=== PATIENT | male | born 1985 | race Caucasian/White ===

== ENCOUNTER 2019-07-23 14:17 | Outpatient (CLI) | payer OTHER, SELFPAY ==
--- NOTE | ~2019-07-23 | MR_ITS ---
EXAMINATION: MR lumbar spine wo con DATE: 07/23/2019 15:24 INDICATION: Low back pain. TECHNIQUE: Magnetic resonance imaging (MRI) of the lumbar spine was performed without intravenous con trast. Sequences included sagittal T2-weighted FSE, sagittal T2-weighted FS FSE, sagittal T1-weighted FSE, and axial T2-weighted FSE. COMPARISON: Lumbar spine radiographs 07/09/2019 FINDINGS: Bone alignment is normal. There are Schmorl's nodes at most levels. There is mild chronic a nterior wedging of T12 and L2 vertebral bodies. L4 is a limbus vertebral body. Intervertebral disc he ights are normal. The distal spinal cord signal intensity is normal. The conus medullaris is at L1-L2 . Epidural lipomatosis is noted. The following disc levels are specifically discussed: L1-L2: The disc is bulging. There is mild bilateral facet joint osteoarthritis. There is mild right n eural foraminal stenosis. There is mild central canal stenosis. L2-L3: The disc is bulging. There is mild right facet joint osteoarthritis. There is mild bilateral n eural foraminal stenosis. There is mild central canal stenosis. L3-L4: The disc does not extend beyond the endplate margin. There is mild bilateral facet joint osteo arthritis. There is no neural foraminal stenosis. There is no central canal stenosis. L4-L5: The disc is mildly bulging. There is mild right facet joint osteoarthritis. There is mild bila teral neural foraminal stenosis. There is mild central canal stenosis. L5-S1: The disc does not extend beyond the endplate margin. There is mild bilateral facet joint osteo arthritis. There is no neural foraminal stenosis. There is mild central canal stenosis. IMPRESSION: 1. Mild lumbar spondylosis. Reviewed, dictated and finalized at location A. ER ENGINEER IMPRESSION: 1. Mild lumbar spondylosis.
== END 2019-07-23 14:18 | disposition home or self-care (01) ==
LOC: CHSIMG 14:18
PROVIDERS: PCP Family Medicine; Visit Provider Family Medicine
DX: M54.5 Low back pain (principal)
CPT/HCPCS: 72148

== ENCOUNTER 2020-01-12 13:42 | Emergency (ER) | payer OTHER, SELFPAY ==
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
--- NOTE | 2020-01-12 13:57 | ED.DENTAL ---
HPI - Dental/Oral General Chief complaint: Dental/Oral Stated complaint: left side of face swelling Time Seen by Provider: 01/12/20 13:57 Source: patient Mode of arrival: ambulatory Limitations: no limitations History of Present Illness HPI Narrative: 34-year-old man comes in today complaining of 2 weeks of pain in the left side of his face. States the pain radiates from his ear, to his left holiness, his left cheek and upper and lower lip. He states the pain while it waxes and wanes is fairly constant. It is not exacerbated by stimulation of the affected side of his face. States that he has been taking hydrocodone and amoxicillin for his symptoms to no avail. He denies any injury. He states that he has a left lower wisdom tooth which has been giving him problems in the past, He has no pain with chewing or exposure of the tooth. Onset (ago): week(s) (2) Duration: constant Severity: severe Relieving factors: nothing Exacerbating factors: nothing Context: history of dental caries Treatment prior to arrival: other ( Hydrocodone and oral antibiotics.) Related Data Allergies Allergy/AdvReac Type Severity Reaction Status Date / Time No Known Allergies Allergy Verified 05/28/19 20:21 Review of Systems Constitutional: Constitutional: Denies chills, Denies fever(s) and Denies weakness Eyes: Eyes: Denies change in vision and Denies photophobia ENT: Denies dysphagia, Denies nasal congestion and Denies sore throat Comments: Sinus pressure Cardiovascular: Cardiovascular: Denies chest pain and Denies radiating jaw, neck or arm pain Respiratory: Respiratory: Denies cough, Denies dyspnea and Denies wheezing Gastrointestinal: Gastrointestinal: Denies abdominal pain, Denies nausea and Denies vomiting Integumentary/Breasts: Skin/Breast: Denies pruritus, Denies erythema and Denies rash Neurologic: Denies vertigo, Denies dizziness and Denies syncope Endocrine: Endocrine: Denies polydipsia and Denies polyuria Hematologic/Lymphatic: Hematologic/Lymphatic: Denies easy bleeding and Denies easy bruising Allergic/Immunologic: Allergic/Immunologic: Denies lip swelling, Denies throat swelling and Denies tongue swelling PMFSH Social History Social History Smoking status: Current every day smoker Alcohol intake: never Substance use: never Living arrangements: with family Exam Const: General: healthy appearing and alert Nutritional Appearance: well nourished Orientation/consciousness: patient oriented x3 Other: Moderate acute distress HENMT: Head: normal to inspection Ears: external ears normal and EAC's normal (TM's obscured by wax. No tragal tenderness) General nose exam: Normal nares present Face and sinus: normal facial exam Mouth: Yes moist mucous membranes Throat: posterior oropharynx normal and uvula midline Other: Mild tenderness with palpation of the left maxilla. Eyes: Conjunctivae: conjunctivae normal Pupils: Equal, round and reactive pupils present EOM: EOMs intact bilaterally Neck: Neck: normal visual inspection and no lymphadenopathy Resp: Effort & Inspection: normal respiratory effort and not labored Auscultation: clear to auscultation bilaterally, no rales, no rhonchi and no wheezes Cardio: Rate: regular rate Rhythm: regular rhythm Heart sounds: no murmurs Skin: General skin exam: normal color, no jaundice and no pallor Rashes: no rashes Neuro: General: patient oriented x3, moves all extremities, no focal motor deficits and CN's II-XI intact bilaterally Speech: normal speech Gait exam (Neuro): Normal gait present Extrem: General: normal to inspection and no clubbing, cyanosis or edema Psych: Appearance: grossly normal and well kempt Mental Status: mental status grossly normal Affect: normal affect Attitude: cooperative Thought content: Yes Normal thought content present Course Vital Signs Vital signs: Vital Signs Temperature 3
[2020-01-12 14:00] VITALS: BP 131/68; PULSE 89; RESP 20; TEMP 36.7; O2SAT 99
[2020-01-12 14:21] LABS: Basophils Absolute Auto 0.08 K/mm3 (0.00-0.10); Basophils Percent Auto 0.6 % (0.0-1.0); Eosinophils Percent Auto 2.9 % (1.0-6.0); Hematocrit 43.3 % (40.0-54.0); Hemoglobin 15.8 g/dL (14.0-18.0); Immature Granulocyte Absolute 0.08 K/mm3 (0.00-0.00); Immature Granulocyte Percent A 0.6 % (0.0-0.0); Lymphocytes Absolute Auto 5.53 K/mm3 (1.10-4.50); Lymphocytes Percent Auto 40.7 % (18.0-42.0); Mean Corpuscular HGB Conc 36.5 g/dL (32.0-36.0); Mean Corpuscular Hemoglobin 30.5 pg (27.0-31.0); Mean Corpuscular Volume 83.6 fL (78.0-102.0); Mean Platelet Volume 10.4 fl (8.7-11.0); Monocytes Absolute Auto 0.64 K/mm3 (0.10-0.90); Monocytes Percent Auto 4.7 % (2.0-11.0); Neutrophils Absolute Auto 6.9 K/mm3 (1.7-7.2); Neutrophils Percent Auto 50.5 % (50.0-70.0); Platelet Count Result 302 K/mm3 (150-420); Red Blood Count 5.18 M/mm3 (4.70-6.10); Red Cell Distribution Width 12.1 % (11.6-14.4); White Blood Count 13.6 K/mm3 (4.8-10.8)
[2020-01-12 14:37] LABS: Alanine Aminotransferase 37 U/L (16-63); Albumin Level 4.2 g/dL (3.4-5.0); Alkaline Phosphatase 93 U/L (46-116); Anion Gap 11.7 mmol/L (7-16); Aspartate Amino Transferase 14 U/L (15-37); Bilirubin,Total 0.8 mg/dL (0.00-1.00); Blood Urea Nitrogen 8 mg/dL (7-18); Calcium 9.6 mg/dL (8.5-10.1); Carbon Dioxide 28 mmol/L (21-32); Chloride 102 mmol/L (98-108); Estimated Glomerular Filt Rate > 60; Glucose 128 mg/dL (70-99); Osmolality Calculated 286 mOsm/kg (285-295); Potassium 3.7 mmol/L (3.5-5.1); Sodium 138 mmol/L (136-145)
[2020-01-12 15:45] VITALS: PULSE 20
== END 2020-01-12 15:45 | disposition home or self-care (01) ==
PROVIDERS: Emergency Provider Emergency Medicine; PCP Family Medicine
DX: J01.00 Acute maxillary sinusitis, unspecified (principal)
CPT/HCPCS: 36415; 70487; 80053; 85025; 99284; Q9965

== ENCOUNTER 2020-07-11 08:57 | Emergency (ER) | payer OTHER, SELFPAY ==
[2020-07-11 09:08] VITALS: BP 122/72; PULSE 86; RESP 18; TEMP 36.9; O2SAT 98
--- NOTE | 2020-07-11 09:18 | ED.DENTAL ---
HPI - Dental/Oral General Chief complaint: Dental/Oral Stated complaint: Pain in mouth Source: patient and family Mode of arrival: ambulatory Limitations: no limitations History of Present Illness HPI Narrative: this is a 35-year-old gentleman that presents with some dental pain has some 1 tooth wisdom tooth in his left lower jaw area with some tenderness surrounding gum inflammation with no fever chills no nausea vomiting no shortness of breath. MD Complaint: tooth pain Teeth map: 1. dental pain with surrounding gum inflammation and tender left submandibular gland Onset (ago): day(s) Duration: constant Severity: mild Relieving factors: nothing Exacerbating factors: nothing Context: poor dental care Associated symptoms: gum swelling Related Data Allergies Allergy/AdvReac Type Severity Reaction Status Date / Time No Known Allergies Allergy Verified 05/28/19 20:21 Review of Systems Review of Systems: All systems reviewed & are unremarkable except as noted in HPI and below PMFSH Past Medical History Medical History Patient denies medical problems Social History Social History Smoking status: Current every day smoker Alcohol intake: never Substance use: never Exam Const: General: no acute distress Orientation/consciousness: patient oriented x3 HENMT: Head: normal to inspection and contusion Other: has swollen tender left lower wisdom tooth Eyes: Conjunctivae: conjunctivae normal Pupils: Equal, round and reactive pupils present Neck: Neck: normal visual inspection Other: submandibular gland inflammation and tenderness with palpation on the left Chest: Chest palpation & inspection: normal inspection of the chest Cardio: Rate: regular rate Rhythm: regular rhythm GI: Auscultation: normal bowel sounds Back/Spine/Pelvis: Back: no CVA tenderness Skin: General skin exam: normal color Rashes: no rashes Psych: Mental Status: mental status grossly normal Course Course Emergency Course: patient declined pain medication but did receive a shot of IM ceftriaxone and advised to follow-up with dentist as soon as possible Vital Signs Vital signs: Vital Signs Temperature 36.9 C 07/11/20 09:08 Pulse Rate 86 07/11/20 09:08 Respiratory Rate 18 07/11/20 09:08 Blood Pressure 122/72 07/11/20 09:08 Pulse Oximetry 98 07/11/20 09:08 Temperature 36.9 C 07/11/20 09:08 Pulse Rate 86 07/11/20 09:08 Respiratory Rate 18 07/11/20 09:08 Blood Pressure 122/72 07/11/20 09:08 Pulse Oximetry 98 07/11/20 09:08 Critical Care Time Critical Care Time Critical Care Time: No Discharge Plan Discharge Clinical Impression: Dental abscess, Toothache Patient Disposition: Home, Self-Care Condition: Stable Instructions: Antibiotic Form, Dental Abscess (ED), Toothache (ED) Additional Instructions: follow-up with dentist soon as possible for further evaluation and treatment. , take medicine as prescribed, Tylenol or Motrin for pain or inflammation. Prescriptions: New amoxicillin 500 mg tablet 500 mg PO TID Qty: 30 RF: 0 Follow-up/Referrals: Maximilian Herbert MD [Primary Care Provider] - Stand Alone Forms: Work/School Release IP Time of Disposition: :22
[2020-07-11] MEDS: cefTRIAXone 1 GM VIAL IM (09:24)
== END 2020-07-11 09:40 | disposition home or self-care (01) ==
PROVIDERS: Emergency Provider Emergency Medicine; PCP Family Medicine
DX: K04.7 Periapical abscess without sinus (principal); K08.89 Other specified disorders of teeth and supporting structures
CPT/HCPCS: 96372; 99283; J0696

== ENCOUNTER 2020-09-13 11:45 | Outpatient (CLI) | payer OTHER, SELFPAY ==
--- NOTE | ~2020-09-13 | XR_ITS ---
EXAMINATION: XR thoracic spine 3V EXAM DATE: 09/13/2020 12:14 INDICATION: LBP since lifting injury 1mo ago, hx Lspine fx 20y . TECHNIQUE: Frontal and lateral projections of the thoracic spine as well as lateral swimmers projecti on of the upper thoracic spine for interpretation. There is no prior study for comparison. FINDINGS: Mild upper thoracic levoscoliosis. There is minimal mid thoracic disc disease. The vertebr al bodies are aligned in the AP dimension. Vertebral body and disc heights are well-maintained. There are no bony erosions identified. Paraspinal soft tissue is unremarkable. IMPRESSION: 1. Mild upper thoracic levoscoliosis. 2. Minimal disc disease. Reviewed, dictated and finalized at location A.
--- NOTE | ~2020-09-13 | XR_ITS ---
EXAMINATION: XR lumbar spine 2-3V EXAM DATE: 09/13/2020 12:14 INDICATION: LBP since lifting injury 1mo ago, hx Lspine fx 20yrs ago . TECHNIQUE: Lumber spine frontal, lateral, lateral L5-S1 projections for interpretation. Comparison is made to prior examination from 07/09/2019. FINDINGS: Again there is mild anterior wedging of the L2 vertebral body, chronic compression fracture unchanged. There is mild diffuse lumbar disc disease and mild lower lumbar facet arthropathy. L5 gutierres bus vertebral body unchanged. No endplate erosions. The vertebral bodies are aligned in the AP dimens ion. Sacrum, sacroiliac joints, sacral arcuate lines are intact. Paraspinal soft tissue is unremarka ble. IMPRESSION: 1. Mild lumbar spondylosis. 2. Chronic L2 compression fracture. 3. No acute findings. Reviewed, dictated and finalized at location A.
== END 2020-09-13 11:46 | disposition home or self-care (01) ==
LOC: CHSIMG 11:46
PROVIDERS: PCP Family Medicine; Visit Provider Family Medicine
DX: M54.5 Low back pain (principal); M54.6 Pain in thoracic spine
CPT/HCPCS: 72072; 72100

== ENCOUNTER 2020-09-22 09:48 | Outpatient (CLI) | payer OTHER, SELFPAY ==
--- NOTE | ~2020-09-22 | US_ITS ---
EXAMINATION: US scrotum doppler, US pelvic complete DATE: 09/22/2020 10:49 (accession [id number]), 09/22/2020 10:48 (accession [id number]) INDICATION: Scrotal and right lower quadrant pain, history of undescended testis TECHNIQUE: Testicular sonogram utilizing grayscale and Doppler COMPARISON: None. FINDINGS: The right testis measures 4.3 x 1.6 x 1.7 cm and is identified in the right inguinal canal. The left testis measures 2.9 x 1.3 x 3.5 cm and is identified in the left inguinal canal. A 3 mm hyp oattenuating area in the inferior aspect of the left kidney demonstrates posterior acoustic enhanceme nt and no internal vascularity, likely representing a cyst There is normal vascular flow to both test es. The right epididymis is normal with normal vascular flow. The left epididymis contains a 6 mm cys t or spermatocele. There is no varicocele or hydrocele. No sonographic abnormality is identified with targeted ultrasound of the right lower quadrant or left lower quadrant. IMPRESSION: 1. Bilateral undescended testes. Reviewed, dictated and finalized at location B. IMPRESSION: 1. Bilateral undescended testes.
== END 2020-09-22 09:49 | disposition home or self-care (01) ==
PROVIDERS: PCP Family Medicine; Visit Provider Family Medicine
DX: N50.82 Scrotal pain (principal); R10.31 Right lower quadrant pain
CPT/HCPCS: 76856; 76870; 93976

== ENCOUNTER 2020-10-07 16:05 | Outpatient (CLI) | payer OTHER, SELFPAY ==
--- NOTE | ~2020-10-07 | XR_ITS ---
EXAMINATION: XR abdomen obstructive series DATE: 10/07/2020 17:08 INDICATION: Constipation and urinary pain. TECHNIQUE: Frontal supine and upright views of the abdomen were obtained. COMPARISON: None. FINDINGS: No free intraperineal gas. Cluster of peripherally calcified gallstones project over the right upper quadrant. Small amount of gas and stool scattered throughout the colon. No dilated gas-filled loops o f bowel to suggest obstruction. Lung bases are clear. Heart size is normal. IMPRESSION: 1. No free intraperitoneal gas or dilated gas-filled loops of bowel to suggest obstruction. 2. Cholelithiasis. Reviewed, dictated and finalized at location A.
== END 2020-10-07 16:06 | disposition home or self-care (01) ==
LOC: CHSIMG 16:06
PROVIDERS: PCP Family Medicine; Visit Provider Family Medicine
DX: R30.0 Dysuria (principal); R10.9 Unspecified abdominal pain
CPT/HCPCS: 74019

== ENCOUNTER 2020-10-12 07:49 | Outpatient (CLI) | payer OTHER, SELFPAY ==
--- NOTE | ~2020-10-12 | US_ITS ---
EXAMINATION: US abdomen complete DATE: 10/12/2020 08:31 INDICATION: Abdominal pain TECHNIQUE: Multiple grayscale and Doppler ultrasound images of the abdomen were obtained. COMPARISON: None available FINDINGS: The head and body of the pancreas are normal. The pancreatic tail is obscured by bowel gas. The liver is normal with normal echogenicity and echotexture. No surface nodularity. Normal hepatope shannon flow in the main portal vein. Multiple stones are present in the nondistended gallbladder. There is no gallbladder wall thickening or pericholecystic fluid. The normal common bile duct measures 4 mm . There was no sonographic Shields sign. The visualized portions of the aorta and inferior vena cava a re normal. The right kidney measures 12.1 x 5.1 x 6.9 cm. The left kidney measures 14.7 x 5.3 x 7.4 cm. The kidn eys demonstrate normal parenchymal echogenicity. There is no hydronephrosis. The spleen is normal in appearance and measures 12.6 cm. IMPRESSION: 1. Cholelithiasis without evidence of cholecystitis. Reviewed, dictated and finalized at location A.
== END 2020-10-12 07:50 | disposition home or self-care (01) ==
LOC: CHSIMG 07:50
PROVIDERS: PCP Family Medicine; Visit Provider Family Medicine
DX: R10.9 Unspecified abdominal pain (principal)
CPT/HCPCS: 76700

== ENCOUNTER 2020-10-20 09:42 | Outpatient (CLI) | payer OTHER, SELFPAY ==
--- NOTE | ~2020-10-20 | MR_ITS ---
EXAMINATION: MR lumbar spine wo con EXAM DATE: 10/20/2020 10:55 INDICATION: Lumbar radiculopathy, back pain. TECHNIQUE: Multi-sequential, multiplanar MR images of the lumbar spine were obtained without contrast . Sagittal T1, T2, T2 fat saturation images. Axial T2 weighted images. Comparison is made to prior examination from 07/23/2019. FINDINGS: There is mild to moderate compression fracture superior endplate of L2, chronic. No bone ma rrow edema or suspicious signal change. There is mild disc disease all lumbar levels. The conus medul lani terminates at the L1/2 level and has normal signal intensity and morphology. The vertebral bod ies are aligned in the AP dimension. There is L5 limbus vertebral body. There is no significant int erval change compared to 2020. Level by level evaluation: T12-L1: Disc does not extend beyond the endplate margin. Facet arthropathy: None. Neural foraminal stenosis: No stenosis. Central canal stenosis: No stenosis. L1-L2: There is a mild diffuse disc bulge. Facet arthropathy: None. Neural foraminal stenosis: No stenosis. Central canal stenosis: Mild. L2-L3: There is a mild diffuse disc bulge. Facet arthropathy: Mild. Neural foraminal stenosis: No stenosis. Central canal stenosis: Minimal. L3-L4: There is a mild diffuse disc bulge. Facet arthropathy: Mild. Neural foraminal stenosis: No stenosis. Central canal stenosis: No stenosis. L4-L5: There is a mild diffuse disc bulge. Facet arthropathy: Mild. Neural foraminal stenosis: Mild right. Central canal stenosis: No stenosis. L5-S1: There is a mild diffuse disc bulge. Facet arthropathy: Mild. Neural foraminal stenosis: No stenosis. Central canal stenosis: No stenosis. IMPRESSION: 1. L2 mild to moderate chronic compression fracture unchanged. 2. Mild lumbar spondylosis. Reviewed, dictated and finalized at location A.
--- NOTE | ~2020-10-20 | MR_ITS ---
EXAMINATION: MR thoracic spine wo con EXAM DATE: 10/20/2020 10:55 INDICATION: Thoracic back pain. TECHNIQUE: Multi-sequential, multiplanar MR images of the thoracic spine were obtained without contra st. Sagittal T1, T2, T2 fat saturation, axial T2 weighted images reviewed. There is no prior study for comparison. FINDINGS: There are no suspicious marrow signal abnormalities. There is mild mid and lower thoracic f acet arthropathy. Thoracic central canal and neural foramen are widely patent. Mild thoracic levoscol iosis. The vertebral bodies are aligned in the AP dimension. Vertebral body and disc heights are well -maintained. The spinal cord signal intensity and intrinsic morphology is normal. IMPRESSION: Mild thoracic levoscoliosis and facet arthropathy. Reviewed, dictated and finalized at location A.
== END 2020-10-20 09:43 | disposition home or self-care (01) ==
LOC: CHSIMG 09:43
PROVIDERS: PCP Family Medicine; Visit Provider Family Medicine
DX: M54.16 Radiculopathy, lumbar region (principal); M54.6 Pain in thoracic spine
CPT/HCPCS: 72146; 72148

== ENCOUNTER 2020-10-27 07:24 | Outpatient (CLI) | payer OTHER, SELFPAY ==
--- NOTE | ~2020-10-27 | CT_ITS ---
EXAMINATION: CT abdomen pelvis w con DATE: 10/27/2020 08:11 INDICATION: Bilateral flank pain, abdominal cramping TECHNIQUE: Computed tomography (CT) of the abdomen and pelvis was performed with 100 cc Omnipaque 350 intravenous contrast. Automated exposure control and iterative reconstruction technique were employe d. Exam dose: 619.13 mGy-cm total exam DLP. COMPARISON: 10/12/2020 complete abdominal ultrasound examination; cholelithiasis was reported. FINDINGS: 1 cm peripheral right lower lobe pulmonary soft tissue nodule. This is not evident on prior 2 view chest radiographic examination of 07/06/2016. 6 mm nodular density at the posterior basilar left lower lobe in the left posterior costophrenic sulc us. No The lung bases are clear of infiltrate or consolidation. There are numerous faceted gallstones measuring up to approximately 1.7 cm maximal dimension. No gall bladder wall thickening or pericholecystic fluid or fat stranding. No bile duct or pancreatic duct di latation. The liver, spleen, pancreas, and adrenal glands are normal. There is approximately 1.1 cm lower pole right renal cyst and 1 cm lower pole left renal cyst. The ki dneys are otherwise unremarkable. No urinary tract calculus or hydroureteronephrosis is detected. Normal caliber of the abdominal aorta. Up to approximately 9 x 22.6 mm adenopathy is noted in the very high left periaortic area anteromedia l to the left adrenal gland; no other intraperitoneal or retroperitoneal or pelvic mass lesion or destiny nopathy or ascites is noted. Normal appendix. No bowel obstruction or intraperitoneal free air. The urinary bladder and prostate g land are unremarkable. There are bilateral undescended testicles at the level of the proximal inguinal canals. There is incr eased risk of testicular cancer in undescended testicles. This raises concern for pulmonary metastase s given the presence of the bilateral lower lobe pulmonary nodules on the current CT examination. No suspicious osteolytic or osteoblastic lesions. IMPRESSION: Bilateral undescended testicles; 10 mm right lower lobe and 6 mm left lower lobe pulmona ry nodules are noted, raising concern for pulmonary metastasis secondary to testicular cancer 2. 9 x 22.6 mm superior left periaortic likely metastatic lymphadenopathy Cholelithiasis Dr. Velázquez left a voicemail for Dr. Herbert's nurse [facility] (spelling?) on 10/27/2020 at 0904 hours, wit h report of bilateral undescended testicles and probable testicular cancer metastatic to superior lef t periaortic lymph nodes and bilateral lower lobes. Reviewed, dictated and finalized at Location A. Reviewed, dictated and finalized at location B. IMPRESSION: Bilateral undescended testicles; 10 mm right lower lobe and 6 mm l eft lower lobe pulmonary nodules are noted, raising concern for pulmonary metas tasis secondary to testicular cancer 2. 9 x 22.6 mm superior left periaortic likely metastatic lymphadenopathy Cholelithiasis Dr. Velázquez left a voicemail for Dr. Herbert's nurse [facility] (spelling?) on 021 at 0904 hours, with report of bilateral undescended testicles and probable testicular cancer metastatic to superior left periaortic lymph nodes and bilate ral lower lobes.
== END 2020-10-27 07:25 | disposition home or self-care (01) ==
LOC: CHSIMG 07:25
PROVIDERS: PCP Family Medicine; Visit Provider Family Medicine
DX: R10.9 Unspecified abdominal pain (principal)
CPT/HCPCS: 74177; Q9967

== ENCOUNTER 2020-10-29 07:52 | Outpatient (CLI) | payer OTHER, SELFPAY ==
--- NOTE | ~2020-10-29 | XR_ITS ---
XR chest 2V DATE: 10/29/2020 08:16 INDICATION: Pulmonary masses; undescended testicles. TECHNIQUE: PA and lateral views COMPARISON: 08/05/2017 PA chest 01/27/2016 2 view chest FINDINGS: Normal heart size. No hilar or mediastinal enlargement. No pulmonary infiltrate or consolid ation, pleural effusion or pulmonary vascular congestion or pneumothorax is evident. Included skeleta l structures are unremarkable. 1 cm nodular posterolateral right lower lung mass noted on 10/27/2020 CT thorax is faintly detected. T he 6 mm posterior costophrenic gutter left lower lobe mass is not detected. IMPRESSION: 1 cm right lower lobe and 6 mm left lower lobe nodules, demonstrated to better advantage on 10/27/2020 CT thorax examination; differential diagnosis includes metastatic nodules pressures prim arily malignancy, granuloma, hamartoma. Consider PET/CT imaging. Reviewed, dictated and finalized at location B. IMPRESSION: 1 cm right lower lobe and 6 mm left lower lobe nodules, demonstrate d to better advantage on 10/27/2020 CT thorax examination; differential diagnosi s includes metastatic nodules pressures primarily malignancy, granuloma, hamart hernandez. Consider PET/CT imaging.
[2020-10-29 08:03] LABS: Basophils Absolute Auto 0.06 K/mm3 (0.00-0.10); Basophils Percent Auto 0.3 % (0.0-1.0); Eosinophils Absolute Auto 0.14 K/mm3 (0.02-0.50); Eosinophils Percent Auto 0.8 % (1.0-6.0); Hematocrit 44.5 % (40.0-54.0); Hemoglobin 15.6 g/dL (14.0-18.0); Immature Granulocyte Absolute 0.08 K/mm3 (0.00-0.00); Immature Granulocyte Percent A 0.4 % (0.0-0.0); Lymphocytes Absolute Auto 4.07 K/mm3 (1.10-4.50); Lymphocytes Percent Auto 22.7 % (18.0-42.0); Mean Corpuscular HGB Conc 35.1 g/dL (32.0-36.0); Mean Corpuscular Hemoglobin 28.8 pg (27.0-31.0); Mean Corpuscular Volume 82.3 fL (78.0-102.0); Mean Platelet Volume 10.2 fl (8.7-11.0); Monocytes Absolute Auto 0.88 K/mm3 (0.10-0.90); Monocytes Percent Auto 4.9 % (2.0-11.0); Neutrophils Absolute Auto 12.7 K/mm3 (1.7-7.2); Neutrophils Percent Auto 70.9 % (50.0-70.0); Platelet Count Result 376 K/mm3 (150-420); Red Blood Count 5.41 M/mm3 (4.70-6.10); White Blood Count 17.9 K/mm3 (4.8-10.8)
== END 2020-10-29 07:53 | disposition home or self-care (01) ==
LOC: CHSLAB 07:53
PROVIDERS: PCP Family Medicine; Visit Provider Family Medicine
DX: R59.1 Generalized enlarged lymph nodes (principal); R06.00 Dyspnea, unspecified
CPT/HCPCS: 36415; 71046; 85025

== ENCOUNTER 2020-11-02 07:58 | Outpatient (CLI) | payer OTHER, SELFPAY ==
--- NOTE | ~2020-11-02 | CT_ITS ---
EXAMINATION: CT diagnostic chest w con DATE: 11/02/2020 08:50 INDICATION: Pulmonary nodule TECHNIQUE: Transaxial computed tomographic images of the chest were obtained after the administration of 75 cc of Omnipaque 350 intravenous contrast. The dose-length product (DLP) was 296.67 mGy-cm. Ite rative reconstruction was used. COMPARISON: 10/27/2020 FINDINGS: There is an 11 mm nodule of the right lower lobe with slight increase in size. A stable 7 m m nodule is present in the left lower lobe there is mild dependent atelectasis. No focal airspace opa cities are identified. There is subcarinal lymphadenopathy. No pleural effusion or pneumothorax is id entified. The heart size is normal. Cholelithiasis is noted. IMPRESSION: 1. Bilateral lower lobe nodules with slight increase in size on the right. Recommend PET/CT, follow-u p CT in three months, or biopsy. 2. Subcarinal lymphadenopathy which could be reactive versus metastatic disease. Reviewed, dictated and finalized at location A. IMPRESSION: 1. Bilateral lower lobe nodules with slight increase in size on the right. Shimon mmend PET/CT, follow-up CT in three months, or biopsy. 2. Subcarinal lymphadenopathy which could be reactive versus metastatic disease .
== END 2020-11-02 07:59 | disposition home or self-care (01) ==
LOC: CHSIMG 07:59
PROVIDERS: PCP Family Medicine; Visit Provider Family Medicine
DX: R91.1 Solitary pulmonary nodule (principal)
CPT/HCPCS: 71260; Q9967

== ENCOUNTER 2020-11-15 17:50 | Emergency (ER) | payer OTHER, SELFPAY ==
[2020-11-15 17:59] VITALS: BP 140/90; PULSE 72; RESP 18; TEMP 36.4; O2SAT 97
--- NOTE | 2020-11-15 18:02 | PC.NURSE ---
sees cancer specialist this week, having pet scan due to nodules in lung & stomach
--- NOTE | 2020-11-15 18:24 | ED.GENADULT ---
HPI - General Adult General Chief complaint: Unspecified Stated complaint: high blood pressure Source: patient Mode of arrival: ambulatory History of Present Illness HPI narrative: patient presents with some high blood pressure reading at home and was concerned that he got a systolic reading of 190 has a wrist blood pressure monitor, patient was a moderate drinker and tobacco user, has been started on medication that he uses for anxiety. Otherwise some repeat blood pressure here is 140/90, there is no chest pain no shortness of breath there is some nausea with 1 episode of vomiting with no abdominal pain no diarrhea constipation no shortness of breath no fever chills. Onset (ago): hour(s) Severity: mild Related Data Allergies Allergy/AdvReac Type Severity Reaction Status Date / Time No Known Allergies Allergy Verified 05/28/19 20:21 Review of Systems Review of Systems: All systems reviewed & are unremarkable except as noted in HPI and below PMFSH Past Medical History Medical History Patient denies medical problems Social History Social History Smoking status: Current every day smoker Alcohol intake: never Substance use: never Gender identity (if verbalized by the patient): Male Exam Const: General: cooperative, healthy appearing, comfortable and no acute distress HENMT: Head: normal to inspection General nose exam: Normal external nose present and No nasal polyps present Face and sinus: normal facial exam Mouth: Yes Normal oral and palatal mucosa present and Yes lip normal Eyes: General: appearance normal, both eyes and all related structures Visual Hernandez: normal visual hernandez by confrontation Eyelids: eyelids normal Conjunctivae: conjunctivae normal Sclera: sclerae normal Neck: Neck: normal visual inspection, full ROM and no lymphadenopathy Chest: Chest palpation & inspection: normal inspection of the chest and normal palpation of entire chest wall Resp: Effort & Inspection: normal respiratory effort Cardio: Jugular venous distension: no JVD Palpation: normal PMI Rate: regular rate Rhythm: regular rhythm Heart sounds: S1 normal heart sound present and S2 normal heart sound present GI: Inspection: normal to inspection Percussion: Yes normal to percussion Auscultation: normal bowel sounds Back/Spine/Pelvis: Back: no CVA tenderness Skin: General skin exam: normal color and no rashes or lesions noted Neuro: General: oriented to person, oriented to place, oriented to time, patient oriented x3, gait normal and tone normal Psych: Appearance: grossly normal and well kempt Mental Status: mental status grossly normal Course Course Emergency Course: Reassessment of patient blood pressure taken manually which was 140/90 advised to take medicine that we sent to his pharmacy and follow-up with his primary care physician. Vital Signs Vital signs: Vital Signs Temperature 36.4 C 11/15/20 17:59 Pulse Rate 72 11/15/20 17:59 Respiratory Rate 18 11/15/20 17:59 Blood Pressure 140/90 11/15/20 17:59 Pulse Oximetry 97 11/15/20 17:59 Temperature 36.4 C 11/15/20 17:59 Pulse Rate 72 11/15/20 17:59 Respiratory Rate 18 11/15/20 17:59 Blood Pressure 140/90 11/15/20 17:59 Pulse Oximetry 97 11/15/20 17:59 Medical Decision Making Vital Signs Vital Signs: Vital Signs Temperature 36.4 C 11/15/20 17:59 Pulse Rate 72 11/15/20 17:59 Respiratory Rate 18 11/15/20 17:59 Blood Pressure 140/90 11/15/20 17:59 Pulse Oximetry 97 11/15/20 17:59 Temperature 36.4 C 11/15/20 17:59 Pulse Rate 72 11/15/20 17:59 Respiratory Rate 18 11/15/20 17:59 Blood Pressure 140/90 11/15/20 17:59 Pulse Oximetry 97 11/15/20 17:59 Critical Care Time Critical Care Time Critical Care Time: No Discharge Plan Discharge Clinical Impression: Hypertensi
[2020-11-15 18:29] VITALS: BP 142/90; PULSE 89; RESP 19; TEMP 36.1; O2SAT 96
== END 2020-11-15 18:32 | disposition home or self-care (01) ==
PROVIDERS: Emergency Provider Emergency Medicine; PCP Family Medicine
DX: I10 Essential (primary) hypertension (principal); F17.200 Nicotine dependence, unspecified, uncomplicated
CPT/HCPCS: 99283

== ENCOUNTER 2020-11-18 08:51 | Outpatient (CLI) | payer OTHER, SELFPAY ==
--- NOTE | ~2020-11-18 | PE_ITS ---
EXAMINATION: PET skull to mid thigh DATE: 11/18/2020 11:36 INDICATION: Enlarged lymph nodes. TECHNIQUE: Blood glucose level was 169 mg/dL. 9.3 mCi of 18-fluorodeoxyglucose (18-FDG) was administe red i.v. Low dose computed tomography (CT) images were acquired from the base of the brain to the pro ximal thighs for attenuation correction and anatomic localization. Automated exposure control was emp loyed. Dose-length product (DLP) was 567 mGy-cm. Positron emission tomography (PET) images were acqui red in the same distribution. COMPARISON: Chest CT 11/02/2020, CT abdomen and pelvis 10/27/2020 FINDINGS: Head/neck: There is increased activity in the oropharynx and oral cavity without CT correlate, likely physiologic. There is increased activity in a left mandibular molar with a carious lesion, consisten t with inflammation. There is a 5 mm radiopaque foreign body superficial to right mandibular body. Th ere are no pathologically enlarged lymph nodes. Chest: There is mild emphysema. There are a few scattered nodules in the lungs measuring up to 9 mm i n right lower lobe without increased activity. No pleural effusion. The heart size is normal. No shame[place] cardial effusion. There is mild mediastinal lymphadenopathy without increased activity. For example, a right paratracheal node measures 10 x 17 mm. Abdomen/pelvis/proximal thighs: The liver, spleen, and pancreas are normal. There are gallstones in t he gallbladder, which is normal in size. The adrenal glands and kidneys are normal. There are no dila caesar loops of bowel. The appendix is normal. The testes are in the inguinal canals bilaterally. There are no pathologically enlarged lymph nodes. There is no free intraperitoneal fluid. There is a chroni c compression fracture of L2. IMPRESSION: 1. Pulmonary nodules measuring up to 9 mm without increased activity, probably benign. Noncontrast lo w-dose chest CT is recommended in 6 months. 2. Mild mediastinal lymphadenopathy without increased activity, likely reactive. 3. Undescended testes. Reviewed, dictated and finalized at location A. IMPRESSION: 1. Pulmonary nodules measuring up to 9 mm without increased activity, probably benign. Noncontrast low-dose chest CT is recommended in 6 months. 2. Mild mediastinal lymphadenopathy without increased activity, likely reactive . 3. Undescended testes.
[2020-11-18 09:38] LABS: Glucose Point of Care 169 mg/dl (65-105)
== END 2020-11-18 08:52 | disposition home or self-care (01) ==
PROVIDERS: PCP Family Medicine; Visit Provider Family Medicine
DX: R59.0 Localized enlarged lymph nodes (principal); R91.8 Other nonspecific abnormal finding of lung field; Q53.9 Undescended testicle, unspecified
CPT/HCPCS: 78815; 82948; A9552

== ENCOUNTER 2021-06-20 16:24 | Outpatient (CLI) | payer OTHER, SELFPAY ==
[2021-06-20 17:34] LABS: SARS-CoV-2 Ag Negative (Negative)
== END 2021-06-20 16:25 | disposition home or self-care (01) ==
LOC: CHSLAB 16:26
PROVIDERS: PCP Family Medicine; Visit Provider Family Medicine
DX: R05.9 Cough, unspecified (principal); Z20.822 Contact with and (suspected) exposure to COVID-19
CPT/HCPCS: 87426; C9803

== ENCOUNTER 2022-05-07 02:47 | Emergency (ER) | payer SELFPAY ==
[2022-05-07 02:50] VITALS: BP 137/89; PULSE 90; RESP 20; TEMP 36.6; O2SAT 96
[2022-05-07] MEDS: KETOROLAC (*BKC) 60 MG/2 ML VIAL IM (03:35)
[2022-05-07 03:49] LABS: Appearance Urine Clear (Clear); Bilirubin Urine 1+ (Negative); Blood Urine Negative (Negative); Glucose Urine UA Negative (Negative); Ketones Urine Trace (Negative); Leukocyte Esterase Ur Negative (Negative); Nitrate Urine Negative (Negative); Protein Urine Negative (Negative); Specific Grav Ur 1.025 (1.010-1.020); Urobilinogen Urine 0.2 mg/dL (0.2-1.0); pH Urine 5.5 (5.0-8.0)
--- NOTE | 2022-05-07 04:11 | ED.BACK ---
HPI - Back Pain/Injury General Chief Complaint: Back Pain/Injury Stated Complaint: BACK PAIN Time Seen by Provider: 05/07/22 02:49 Source: patient and RN notes reviewed Mode of arrival: ambulatory Limitations: no limitations History of Present Illness MD elicited complaint: back pain Pertinent past history: prior back pain Onset (ago): day(s) (1) Timing: constant and progressively worsening Severity: mild Pain scale (0-10): 7 Quality: dull and aching Location: lumbar spine Radiation: buttocks Exacerbating factors: movement Relieving factors: immobilization Associated symptoms: denies other symptoms Treatments prior to arrival: NSAIDS Work related injury: No Related Data Allergies Allergy/AdvReac Type Severity Reaction Status Date / Time No Known Allergies Allergy Verified 05/28/19 20:21 Review of Systems Review of Systems: All systems reviewed & are unremarkable except as noted in HPI and below Constitutional: Constitutional: Reports no additional constitutional complaints Eyes: Eyes: Reports no additional eye complaints ENT: Reports system reviewed and no additional complaints, except as documented Cardiovascular: Cardiovascular: Reports no additional cardiovascular complaints Respiratory: Respiratory: Reports no additional respiratory complaints Gastrointestinal: Gastrointestinal: Reports no additional gastrointestinal complaints Musculoskeletal: Musculoskeletal: Reports back pain Integumentary/Breasts: Skin/Breast: Reports system reviewed and no additional complaints, except as docu Neurologic: Reports system reviewed and no additional complaints, except as documented Psychiatric: Psychiatric: Reports no additional psychiatric complaints Endocrine: Endocrine: Reports no additional endocrine complaints Hematologic/Lymphatic: Hematologic/Lymphatic: Reports no additional hematologic/lymphatic complaints Allergic/Immunologic: Allergic/Immunologic: Reports no additional allergic/immunologic complaints PMFSH Past Medical History Medical History (Updated 05/16/22 @ 00:11 by Ayanna Cat MD) Back pain Patient denies medical problems Sciatica Social History Social History Smoking status: Current every day smoker Alcohol intake: never Substance use: never Gender identity (if verbalized by the patient): Male Exam Const: General: no acute distress and well nourished Nutritional Appearance: well nourished Orientation/consciousness: patient oriented x3 Limitations: no limitations HENMT: Head: normal to inspection Ears: external ears normal, TM's normal bilaterally and EAC's normal Face/Nose/Sinus: Normal external nose present, Normal nares present, normal facial exam and sinuses nontender Face and sinus: normal facial exam and sinuses nontender Mouth: Yes Normal oral and palatal mucosa present and Yes moist mucous membranes Teeth and gingiva: dentition normal Throat: posterior oropharynx normal Eyes: Conjunctivae: conjunctivae normal Pupils: Equal, round and reactive pupils present EOM: EOMs intact bilaterally Neck: Neck: normal visual inspection, no lymphadenopathy and no meningeal signs Chest: Chest palpation & inspection: normal inspection of the chest Resp: Effort & Inspection: normal respiratory effort Auscultation: clear to auscultation bilaterally Cardio: Rate: regular rate Rhythm: regular rhythm GI: GI Palp: Yes Soft to palpation and No Tenderness to palpation present (GI) Auscultation: normal bowel sounds : General: Yes bladder normal to palpation and Yes no CVA tenderness Back/Spine/Pelvis: Back: no CVA tenderness Other: mild paraspinal lumbar tenderness Skin: General skin exam: normal color Rashes: no rashes Wounds: no wounds Neuro: General: patient oriented x3, moves all extremities, no meningeal signs, no focal motor deficits and CN's II-XI intact bilaterally Cranial nerves: Yes Equal, round and
--- NOTE | 2022-05-07 04:11 | PC.NURSE ---
pt sleeping per cot. awaiting lab urine results. family at bedside
[2022-05-07 04:14] VITALS: BP 134/79; PULSE 84; RESP 20; TEMP 36.6; O2SAT 94
[2022-05-07 04:18] LABS: Add Urine Microscopic? YES; Amorphous Sediment Urine Few; Bacteria Urine Trace /hpf; Color Urine Dark Yellow (Yellow); Mucus Urine Heavy /lpf; RBC Urine 0-2 /hpf (0-2); Squamous Epithelial Cell Urine Occasional /hpf (Few); WBC Urine 0-3 /hpf (0-3)
== END 2022-05-07 04:45 | disposition home or self-care (01) ==
PROVIDERS: Emergency Provider Emergency Medicine; PCP Family Medicine
DX: M54.16 Radiculopathy, lumbar region (principal); M54.30 Sciatica, unspecified side
CPT/HCPCS: 81001; 96372; 99283; J1885